=== PATIENT | female | born 1985 | race Caucasian/White ===

== ENCOUNTER 2020-06-20 17:16 | Emergency (ER) | payer OTHER ==
[~2020-06-20] VITALS: Ht 177.8 cm; Wt 72.6 kg
== END 2020-06-20 23:03 | disposition home or self-care (01) ==
LOC: ER 17:16
DX: B34.9 Viral infection, unspecified (principal); E03.8 Other specified hypothyroidism; Z03.818 Encounter for observation for suspected exposure to other biological agents ruled out

== ENCOUNTER 2021-11-03 16:35 | Emergency (ER) | payer OTHER ==
[~2021-11-03] VITALS: Ht 177.8 cm; Wt 68.0 kg
[2021-11-03] MEDS ORDERED: MACROBID 100 M100 MG PO (20:46)
== END 2021-11-03 20:50 | disposition home or self-care (01) ==
LOC: ER 16:35
DX: N30.00 Acute cystitis without hematuria (principal)

== ENCOUNTER 2022-04-13 14:20 | Outpatient (CLI) | payer OTHER ==
[~2022-04-13 14:20] MED LIST: MACROBID 100 M100 MG PO
== END 2022-04-13 14:27 | disposition home or self-care (01) ==
LOC: SONOGRAMA 14:20
PROVIDERS: ATTEND Specialist
DX: N92.1 Excessive and frequent menstruation with irregular cycle (principal)